=== PATIENT | female | born 1960 | race Caucasian/White ===

== ENCOUNTER 2017-11-23 10:02 | Emergency (ER) | payer OTHER ==
[2017-11-23 10:09] VITALS: BP 151/78
[2017-11-23 11:00] LABS: CHLORIDE,CL 103 mmol/L (101-111); SODIUM,NA 138 mmol/L (135-145)
[2017-11-23 11:05] LABS: ACETAMINOPHEN < 10
--- NOTE | 2017-11-23 17:20 | ER ---
SUBJECTIVE: The patient is a 57-year-old female, she comes in because she feels suicidal, depressed. She purposefully cut herself along the left neck, under the left breast, on the left wrist. She states she works at many jobs, is overwhelmed, very tired. She is afraid the police are going to pick her up, although she has not had anything wrong, and she is afraid to go out. She is very worried about life. She states she used a steak knife. She feels she would like to but does not really want to. She is confused. PAST MEDICAL HISTORY: Previous , hysterectomy, depression, suicidal ideation. Chronic back pain with 2 back surgeries, DDD/DJD. Fibromyalgia. Hypothyroidism, chronic pain, oophorectomy, cholecystectomy, tonsillectomy, and impaired vision. CURRENT MEDICATIONS: Not capable of verifying at this point. Patient unsure. ALLERGIES: She states she is allergic to morphine causes a headache. SOCIAL HISTORY: She denies any substance abuse. REVIEW OF SYSTEMS: Fatigue, lethargy, depression, suicide ideation, frustrated, and she is paranoid, afraid she will be picked up by the police. No chest pain. No shortness of breath. No nausea or vomiting. No bowel or bladder changes. Denies . Denies melena, BRBPR. No head trauma, syncope, near syncope. No vision changes. Please see HPI. OBJECTIVE: Vital Signs: Height is 1.57 m. Weight is 59.9 kg. She is afebrile. Heart rate is 88, blood pressure 151/78, respiratory rate 18, oxygen is 99% on room air. General: Pleasant, she ambulates in the leung to her room and the bathroom. She is interactive. She has a flat affect. In no acute respiratory distress. She is A and O x3. HEENT: Normocephalic, atraumatic. PERRL. EOMI. Neck: Unremarkable. No JVD. Chest: Nontender. It is clear. Abdomen: Soft, benign. Back: No CVAT. Skin: She has a very superficial 1 cm laceration that does not need any repair on the left neck, another very small superficial laceration, less than 1 cm just under the left breast, and she has a very superficial mild abrasion on the left wrist. No deformity. No bleeding. No repair is needed. LAB/STUDIES: White count is 9.5, she has no anemia. Differential, neutrophils are 81.7. Electrolytes are not remarkable. BUN and creatinine are not remarkable. BMP is unremarkable. TSH is normal at 1.68. Salicylates less than 4. Acetaminophen less than 10. Alcohol less than 5. Drug screen is negative except for tricyclic antidepressants and benzos are both positive. Once the patient medically cleared and labs back, social work came and evaluated patient. She felt the patient should be admitted and a directed admit to [facility] would be the best. A call was made to [facility] and the psychiatrist there reviewed the patient and accepted the patient for transfer. ASSESSMENT: 1. Suicidality. 2. Depression. 3. Self-inflicted superficial wounds to left neck, left chest wall and left wrist. PLAN: Transfer via ambulance to [facility] to the Psychiatric Unit for further evaluation. Please send all records to that unit. [facility] /[id number]
== END 2017-11-23 15:50 ==
LOC: EDBD → DL.ED 10:02 → MERGE 10:02 → DL.ED 15:50
DX: S11.91XA Laceration without foreign body of unspecified part of neck, initial encounter (principal); S21.112A Laceration without foreign body of left front wall of thorax without penetration into thoracic cavity, initial encounter; S60.812A Abrasion of left wrist, initial encounter; F32.9 Major depressive disorder, single episode, unspecified; Z88.5 Allergy status to narcotic agent; X78.9XXA Intentional self-harm by unspecified sharp object, initial encounter
CPT/HCPCS: 36415; 80053; 80305; 81003; 84443; 85025; 87086; 99285; G0480; 87088; 87186

== ENCOUNTER 2018-03-15 12:58 | Emergency (ER) | payer OTHER ==
--- NOTE | 2018-03-15 13:18 | EDM.PDOC ---
ED HPI GENERAL MEDICAL PROBLEM - General Chief Complaint: General Stated Complaint: DOES NOT FEEL WELL Time Seen by Provider: 03/15/18 13:17 Source of Information: Reports: Patient, Old Records, RN, RN Notes Reviewed History Limitations: Reports: No Limitations - History of Present Illness INITIAL COMMENTS - FREE TEXT/NARRATIVE: Pt presents to ER from home by POV with c/o "not feeling well in general". Pt is very vague in describing her symptoms. Eventually I was able to determine that for several days she has been having fatigue, low grade fevers and chills, occasional nausea, and back pain. She denies cough, vomiting, sore throat, headache, or rash. She reports that she had diarrhea last week but it resolved on it's own. She is worried about her thyroid because her levothyroxine was increased in November of this year and has not been rechecked yet. Onset: Gradual Duration: Day(s): (2) Location: Reports: Back, Generalized Quality: Reports: Ache Severity: Severe Improves with: Reports: None Worsens with: Reports: None Associated Symptoms: Reports: No Other Symptoms - Related Data Allergies Allergy/AdvReac Type Severity Reaction Status Date / Time codeine Allergy UNKNOWN Verified 03/15/18 13:05 morphine Allergy UNKNOWN Verified 03/15/18 13:05 Home Meds: Home Meds Carisoprodol 350 mg PO TID 03/15/18 [History] LORazepam 0.5 mg PO BID PRN 03/15/18 [History] Levothyroxine Sodium [Levoxyl] 50 mg PO DAILY 03/15/18 [History] Lurasidone HCl [Latuda] 20 mg PO DAILY 03/15/18 [History] Pregabalin [Lyrica] 75 mg PO BID PRN 03/15/18 [History] Past Medical History HEENT History: Reports: Impaired Vision Musculoskeletal History: Reports: Back Pain, Chronic, Fibromyalgia Psychiatric History: Reports: Anxiety, Depression, Psych Hospitalization(s), Suicide Attempt, Suicidal Ideation Endocrine/Metabolic History: Reports: Hypothyroidism - Past Surgical History HEENT Surgical History: Reports: Adenoidectomy, Tonsillectomy GI Surgical History: Reports: Cholecystectomy Female Surgical History: Reports: Hysterectomy, Oophorectomy Social & Family History - Family History Family Medical History: Noncontributory - Tobacco Use Smoking Status *Q: Never Smoker - Caffeine Use Caffeine Use: Reports: Soda - Living Situation & Occupation Living situation: Reports: Single, with Family ED ROS GENERAL - Review of Systems Review Of Systems: ROS reveals no pertinent complaints other than HPI. ED EXAM, GENERAL - Physical Exam Exam: See Below Exam Limited By: No Limitations General Appearance: Alert, No Apparent Distress, Anxious Eye Exam: Bilateral Eye: Normal Inspection Ears: Normal External Exam, Normal Canal, Hearing Grossly Normal, Normal TMs Nose: Normal Inspection, Normal Mucosa, No Blood Throat/Mouth: Normal Inspection, Normal Lips, Normal Teeth, Normal Gums, Normal Oropharynx, Normal Voice, No Airway Compromise Head: Atraumatic, Normocephalic Neck: Normal Inspection, Supple, Non-Tender, Full Range of Motion. No: Lymphadenopathy (L), Lymphadenopathy (R) Respiratory/Chest: No Respiratory Distress, Lungs Clear, Normal Breath Sounds, No Accessory Muscle Use, Chest Non-Tender Cardiovascular: Normal Peripheral Pulses, Regular Rate, Rhythm, No Edema, No Gallop, No JVD, No Murmur, No Rub GI/Abdominal: Normal Bowel Sounds, Soft, No Distention, No Abnormal Bruit, Pelvis Stable, Tender (mildly tender to palpation at LUQ and RUQ). No: Guarding , Rigid, Rebound (Female) Exam: Deferred Rectal (Female) Exam: Deferred Back Exam: Full Range of Motion, CVA Tenderness (L) (mild), CVA Tenderness (R) ( mild). No: Vertebral Tenderness Extremities: Normal Inspection, Normal Range of Motion, Non-Tender, Normal Capillary Refill, No Pedal Edema Neurological: Alert, Oriented, CN II-XII Intact, Normal Cognition, Normal Gait, No Motor/Sensory Deficits Psychiatric: Normal Affect, Normal Mood Skin Exam: Warm, Dry, Intact, Normal Color, No Rash Course - Vital Signs Last Recorded V/S: Last Vital Signs Temp 36.8 C 03/15/18 14:44 Pulse 79 03/15/18 14:44 Resp 18 03/15/18 14:44 BP 139/95 H 03/15/18 14:44 Pulse Ox 99 03/15/18 14:44 - Orders/Labs/Meds Orders: Active Orders 24 hr Category Date Time Status CULTURE URINE [RM] Stat Lab 03/15/18 13:23 Received Labs: Laboratory Tests 03/15/18 03/15/18 03/15/18 Range/Units 13:23 13:50 13:50 WBC 9.4 (5.0-10.0) 10^3/uL RBC 4.15 L (4.2-5.4) 10^6/uL Hgb 13.0 (12.0-16.0) g/dL Hct 38.9 (37.0-47.0) % MCV 93.7 (80-100) fL MCH 31.3 (27.0-34.0) pg MCHC 33.4 (33.0-35.0) g/dL Plt Count 397 (150-450) 10^3/uL Neut % (Auto) 80.0 H (42.2-75.2) % Lymph % (Auto) 13.3 L (20.5-50.1) % [place] % (Auto) 5.6 (2-8) % Eos % (Auto) 0.6 L (1.0-3.0) % Baso % (Auto) 0.5 (0.0-1.0) % Sodium 140 (135-145) mmol/L Potassium 4.0 (3.6-5.0) mmol/L Chloride 104 (101-111) mmol/L Carbon Dioxide 28.0 (21.0-31.0) mmol/L Anion Gap 12.0 BUN 13 (7-18) mg/dL Creatinine 0.7 (0.6-1.3) mg/dL Est Cr Clr Drug Dosing 69.28 mL/min Estimated GFR (MDRD) > 60 BUN/Creatinine Ratio 18.57 Glucose 119 H (74-105) mg/dL Calcium 8.9 (8.4-10.2) mg/dl Total Bilirubin 0.5 (0.2-1.0) mg/dL AST 20 (10-42) IU/L ALT 27 (10-60) IU/L Alkaline Phosphatase 63 (42-121) IU/L Total Protein 7.1 (6.7-8.2) g/dl Albumin 4.1 (3.2-5.5) g/dl Globulin 3.0 Albumin/Globulin Ratio 1.37 TSH, Ultra Sensitive (0.45-5.33) uIu/mL Urine Color Yellow (YELLOW) Urine Appearance Slightly cloudy (CLEAR) Urine pH 5.5 (5.0-9.0) Ur Specific [place] >= 1.030 (1.005-1.030) Urine Protein Negative (NEGATIVE) Urine Glucose (UA) Negative (NEGATIVE) Urine Ketones 40 H (NEGATIVE) Urine Occult Blood Trace-intact H (NEGATIVE) Urine Nitrite Negative (NEGATIVE) Urine Bilirubin Negative (NEGATIVE) Urine Urobilinogen 0.2 (0.2-1.0) mg/dL Ur Leukocyte Esterase Moderate H (NEGATIVE) Urine RBC 5-10 H /HPF Urine WBC 75-100 H (0-5/HPF) /HPF Ur Epithelial Cells Moderate H /HPF Amorphous Sediment Few (0/HPF) /HPF Urine Bacteria Few (0-FEW/HPF) /HPF Urine Mucus Occasional /LPF 03/15/18 Range/Units 13:50 WBC (5.0-10.0) 10^3/uL RBC (4.2-5.4) 10^6/uL Hgb (12.0-16.0) g/dL Hct (37.0-47.0) % MCV (80-100) fL MCH (27.0-34.0) pg MCHC (33.0-35.0) g/dL Plt Count (150-450) 10^3/uL Neut % (Auto) (42.2-75.2) % Lymph % (Auto) (20.5-50.1) % [place] % (Auto) (2-8) % Eos % (Auto) (1.0-3.0) % Baso % (Auto) (0.0-1.0) % Sodium (135-145) mmol/L Potassium (3.6-5.0) mmol/L Chloride (101-111) mmol/L Carbon Dioxide (21.0-31.0) mmol/L Anion Gap BUN (7-18) mg/dL Creatinine (0.6-1.3) mg/dL Est Cr Clr Drug Dosing mL/min Estimated GFR (MDRD) BUN/Creatinine Ratio Glucose (74-105) mg/dL Calcium (8.4-10.2) mg/dl Total Bilirubin (0.2-1.0) mg/dL AST (10-42) IU/L ALT (10-60) IU/L Alkaline Phosphatase (42-121) IU/L Total Protein (6.7-8.2) g/dl Albumin (3.2-5.5) g/dl Globulin Albumin/Globulin Ratio TSH, Ultra Sensitive 1.14 (0.45-5.33) uIu/mL Urine Color (YELLOW) Urine Appearance (CLEAR) Urine pH (5.0-9.0) Ur Specific [place] (1.005-1.030) Urine Protein (NEGATIVE) Urine Glucose (UA) (NEGATIVE) Urine Ketones (NEGATIVE) Urine Occult Blood (NEGATIVE) Urine Nitrite (NEGATIVE) Urine Bilirubin (NEGATIVE) Urine Urobilinogen (0.2-1.0) mg/dL Ur Leukocyte Esterase (NEGATIVE) Urine RBC /HPF Urine WBC (0-5/HPF) /HPF Ur Epithelial Cells /HPF Amorphous Sediment (0/HPF) /HPF Urine Bacteria (0-FEW/HPF) /HPF Urine Mucus /LPF Meds: Medications Discontinued Medications Generic Name Dose Route Start Last Admin Trade Name Freq PRN Reason Stop Dose Admin Hydrocodone Bitart/Acetaminophen 1 tab 03/15/18 14:41 Yantis 325-10 Mg PO 03/15/18 14:42 ONETIME ONE Ketorolac Tromethamine 60 mg 03/15/18 14:40 Toradol IM 03/15/18 14:41 ONETIME ONE Trimethoprim/Sulfamethoxazole 1 tab 03/15/18 14:40 Septra Ds PO 03/15/18 14:41 ONETIME ONE Departure - Departure Time of Disposition: 14:48 Disposition: Home, Self-Care 01 Condition: Good Clinical Impression: History of hypothyroidism UTI (urinary tract infection) Qualifiers: Urinary tract infection type: site unspecified Hematuria presence: with hematuria Qualified Code(s): N39.0 - Urinary tract infection, site not specified Chronic pain Qualifiers: Chronic pain type: chronic pain syndrome Qualified Code(s): G89.4 - Chronic pain syndrome - Discharge Information *PRESCRIPTION DRUG MONITORING PROGRAM REVIEWED*: No *COPY OF PRESCRIPTION DRUG MONITORING REPORT IN PATIENT FELIZ: No Instructions: Hypothyroidism, Urinary Tract Infection, Adult, [id number], Chronic Pain, Adult Forms: ED Department Discharge Additional Instructions: Rx: Bactrim DS Rx: Toradol 10mg *Take with food. Follow up in clinic for recheck in 5 to 7 days. - My Orders Last 24 Hours: My Active Orders 03/15/18 13:23 CULTURE URINE [RM] Stat - Assessment/Plan Last 24 Hours: My Active Orders 03/15/18 13:23 CULTURE URINE [RM] Stat
[2018-03-15 14:26] LABS: CHLORIDE,CL 104 mmol/L (101-111); SODIUM,NA 140 mmol/L (135-145)
[2018-03-15] MEDS ORDERED: Sulfamethoxazole/Trimethoprim 800-160 MG Tab PO ONE (14:40)
[2018-03-15] MEDS ORDERED: Ketorolac 30 MG/ML SDV IM ONE (14:40)
[2018-03-15] MEDS ORDERED: Acetaminophen/HYDROcodone 325-10 MG Tab PO ONE (14:41)
[2018-03-15 14:45] VITALS: BP 139/95
== END 2018-03-15 15:52 | disposition home or self-care (01) ==
LOC: DL.ED 12:58
DX: N39.0 Urinary tract infection, site not specified (principal); E03.9 Hypothyroidism, unspecified; G89.4 Chronic pain syndrome; F32.9 Major depressive disorder, single episode, unspecified; F41.9 Anxiety disorder, unspecified; Z79.899 Other long term (current) drug therapy; Z88.5 Allergy status to narcotic agent
CPT/HCPCS: 36415; 80053; 81001; 84443; 85025; 87086; 96372; 99283; A9270; J1885

== ENCOUNTER 2018-06-24 14:21 | Emergency (ER) | payer OTHER ==
[2018-06-24 14:34] VITALS: BP 161/75
[2018-06-24] MEDS ORDERED: GI Cocktail Oral Solution 30 ML PO ONE (14:56)
--- NOTE | 2018-06-24 15:02 | EDM.PDOC ---
ED HPI GENERAL MEDICAL PROBLEM - General Chief Complaint: Chest Pain Stated Complaint: CHEST PAIN/HIGH ANXIETY Time Seen by Provider: 06/24/18 14:57 Source of Information: Reports: Patient History Limitations: Reports: No Limitations - History of Present Illness INITIAL COMMENTS - FREE TEXT/NARRATIVE: Patient comes emergency department today with complaints of chest pain. Proximally 2 hours ago she was at work when she suddenly developed pressure sensation over the left anterior chest. He has had some nausea but no vomiting. No diaphoresis. She has been dealing with quite a bit of emotional stress over the past couple months which she does not elaborate in much. She does take quite a bit of psychiatric medication but she has not taken anything since Sunday. She has used lorazepam for this type of symptomology in the past with improvement of pain although she has not tried it with his development. She is unsure if she has shortness of breath or diaphoresis. Chest Pain Score (Numeric/FACES): 6 - Related Data Allergies Allergy/AdvReac Type Severity Reaction Status Date / Time codeine Allergy UNKNOWN Verified 06/24/18 14:38 morphine Allergy UNKNOWN Verified 06/24/18 14:38 Home Meds: Home Meds Carisoprodol 350 mg PO TID 03/15/18 [History] Diclofenac Sodium [Voltaren] 50 mg PO ASDIRECTED PRN 03/15/18 [History] LORazepam 0.5 mg PO BID PRN 03/15/18 [History] Levothyroxine Sodium [Levoxyl] 50 mg PO DAILY 03/15/18 [History] Lurasidone HCl [Latuda] 20 mg PO DAILY 03/15/18 [History] Pregabalin [Lyrica] 75 mg PO BID PRN 03/15/18 [History] Past Medical History HEENT History: Reports: Impaired Vision Musculoskeletal History: Reports: Back Pain, Chronic, Fibromyalgia Psychiatric History: Reports: Anxiety, Depression, Psych Hospitalization(s), Suicide Attempt, Suicidal Ideation Endocrine/Metabolic History: Reports: Hypothyroidism - Past Surgical History HEENT Surgical History: Reports: Adenoidectomy, Tonsillectomy GI Surgical History: Reports: Cholecystectomy Female Surgical History: Reports: Hysterectomy, Oophorectomy Social & Family History - Family History Family Medical History: Noncontributory - Tobacco Use Smoking Status *Q: Never Smoker - Caffeine Use Caffeine Use: Reports: Coffee - Recreational Drug Use Recreational Drug Use: No - Living Situation & Occupation Living situation: Reports: Single, with Family ED ROS GENERAL - Review of Systems Review Of Systems: ROS reveals no pertinent complaints other than HPI. ED EXAM, GENERAL - Physical Exam Exam: See Below Exam Limited By: No Limitations General Appearance: Alert, WD/WN, No Apparent Distress Nose: Normal Inspection Throat/Mouth: Normal Inspection Head: Atraumatic, Normocephalic Neck: Normal Inspection, Supple, Non-Tender Respiratory/Chest: No Respiratory Distress, Lungs Clear, Normal Breath Sounds, No Accessory Muscle Use Cardiovascular: Normal Peripheral Pulses, Regular Rate, Rhythm GI/Abdominal: Normal Bowel Sounds, Soft, No Abnormal Bruit Rectal (Female) Exam: Normal Exam Back Exam: Normal Inspection, Full Range of Motion Extremities: Normal Inspection, Normal Range of Motion, Normal Capillary Refill Neurological: Alert, Oriented, CN II-XII Intact, No Motor/Sensory Deficits Psychiatric: Flat Affect, Tearful, Other (She is rather quiet and gives very little information. She has little to no eye contact. She is intermittently tearful. Most of the answers to questions are "I don't know". It appears as if to me that she wants to share some information but she does not give any information.) Skin Exam: Warm, Dry, Intact, Normal Color EKG INTERPRETATION EKG Date: 06/24/18 Time: 14:26 Rhythm: NSR Rate (Beats/Min): 78 Jarrell: Normal P-Wave: Present QRS: Normal ST-T: Normal QT: Normal Course - Vital Signs Last Recorded V/S: Last Vital Signs Temp 37.4 C 06/24/18 14:29 Pulse 74 06/24/18 14:29 Resp 18 06/24/18 14:29 BP 161/75 H 06/24/18 14:29 Pulse Ox 98 06/24/18 14:29 - Orders/Labs/Meds Orders: Active Orders 24 hr Category Date Time Status EKG 12 Lead [EKG Documentation Completion] [RC] URGENT Care 06/24/18 14:56 Active Labs: Laboratory Tests 06/24/18 06/24/18 06/24/18 Range/Units 15:02 15:02 16:39 WBC 9.4 (5.0-10.0) 10^3/uL RBC 3.84 L (4.2-5.4) 10^6/uL Hgb 12.5 (12.0-16.0) g/dL Hct 36.2 L (37.0-47.0) % MCV 94.3 (80-100) fL MCH 32.6 (27.0-34.0) pg MCHC 34.5 (33.0-35.0) g/dL Plt Count 361 (150-450) 10^3/uL Neut % (Auto) 73.2 (42.2-75.2) % Lymph % (Auto) 17.2 L (20.5-50.1) % [place] % (Auto) 7.9 (2-8) % Eos % (Auto) 1.3 (1.0-3.0) % Baso % (Auto) 0.4 (0.0-1.0) % Sodium 138 (135-145) mmol/L Potassium 3.4 L (3.6-5.0) mmol/L Chloride 103 (101-111) mmol/L Carbon Dioxide 26.0 (21.0-31.0) mmol/L Anion Gap 12.4 BUN 19 H (7-18) mg/dL Creatinine 0.8 (0.6-1.3) mg/dL Est Cr Clr Drug Dosing 60.62 mL/min Estimated GFR (MDRD) > 60 BUN/Creatinine Ratio 23.75 Glucose 107 H (74-105) mg/dL Calcium 9.1 (8.4-10.2) mg/dl Total Bilirubin 0.5 (0.2-1.0) mg/dL AST 22 (10-42) IU/L ALT 19 (10-60) IU/L Alkaline Phosphatase 58 (42-121) IU/L Troponin I < 0.02 (0.00-0.02) ng/ml Total Protein 6.7 (6.7-8.2) g/dl Albumin 4.2 (3.2-5.5) g/dl Globulin 2.5 Albumin/Globulin Ratio 1.68 Urine Opiates Screen Negative (NEGATIVE) Ur Oxycodone Screen Negative (NEGATIVE) Urine Methadone Screen Negative (NEGATIVE) Ur Barbiturates Screen Negative (NEGATIVE) U Tricyclic Antidepress Negative (NEGATIVE) Ur Phencyclidine Scrn Negative (NEGATIVE) Ur Amphetamine Screen Negative (NEGATIVE) U Methamphetamines Scrn Negative (NEGATIVE) Urine MDMA Screen Negative (NEGATIVE) U Benzodiazepines Scrn Negative (NEGATIVE) Urine Cocaine Screen Negative (NEGATIVE) U Marijuana (THC) Screen Negative (NEGATIVE) Meds: Medications Discontinued Medications Generic Name Dose Route Start Last Admin Trade Name [place] PRN Reason Stop Dose Admin Al Hydroxide/Mg Hydroxide 30 ml 06/24/18 14:56 06/24/18 15:09 Gi Cocktail PO 06/24/18 14:57 30 ml ONETIME ONE Administration - Re-Assessments/Exams Free Text/Narrative Re-Assessment/Exam: 06/24/18 15:11 GI cocktail no change in symptomatology. Labs drawn 06/24/18 16:41 EKG laboratory evaluation and chest x-ray are unremarkable. Really do not some concerns about what the underlying gain of this patient is that she gives very little information and is somewhat not sharing information with us. Eventually she does explain that she does not want to use her Ativan as much as she has concerns that they're controlled substances. Her anxiety and depression is under control and she feels that she needs an increase of her Ativan but her prescriber will not do this for her. She does take Latuda lorazepam Soma and Lyrica. I'm really not sure what the patient is in the emergency department for what she expects of the visit today. When I ask her very blatantly how we can help her she answers me I don't know. She does request a urine drug screen. She is quite concerned of the controlled substances that she takes that she may get in trouble at work for which he is taking. She denies taking her medication inappropriately or in any way of recreational benefit. 06/24/18 19:44 urine drug screen is negative SHe would like a refill on her ativan although she has some ativan at home that she has not tried. As the patients cardiac work up is negative and she gives little to no information about my other concerns I do not feel comfortable prescribing her another controlled substances with the large amount she is already on and she has some at home. SHe needs to see her primary care for refills of her chronic medication and especially the controlled substances. Departure - Departure Time of Disposition: 17:20 Disposition: Home, Self-Care 01 Clinical Impression: Anxiety, Chest pain, non-cardiac Instructions: Generalized Anxiety Disorder, Adult, Nonspecific Chest Pain, Easy -to-Read Referrals: Gabby Mane MD [Primary Care Provider] - Forms: ED Department Discharge Additional Instructions: Use your ativan as needed for your anxiety. Follow up with PCP this week about chronic anxiety and chronic pain issues. Consider see a counseling again in the next week as well. Works well with all your symptoms and your fibromyalgia. Return to the ED if new or worsening symptoms. - My Orders Last 24 Hours: My Active Orders 06/24/18 14:56 EKG 12 Lead [EKG Documentation Completion] [RC] URGENT - Assessment/Plan Last 24 Hours: My Active Orders 06/24/18 14:56 EKG 12 Lead [EKG Documentation Completion] [RC] URGENT Assessment:: Chest pain none cardiac anxiety Plan: Use your ativan as needed for your anxiety. Follow up with PCP this week about chronic anxiety and chronic pain issues. Consider see a counseling again in the next week as well. Works well with all your symptoms and your fibromyalgia. Return to the ED if new or worsening symptoms.
[2018-06-24 15:27] LABS: ANION GAP 12.4; CHLORIDE,CL 103 mmol/L (101-111); SODIUM,NA 138 mmol/L (135-145)
--- NOTE | 2018-06-24 15:47 | CR ---
Clinical history: 57-year-old female complaining of chest pain. Interpretation: Mild scoliosis. 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 Normal cardiac silhouette without alveolar edema or dependent pleural effusion. No lung mass, hilar lymphadenopathy or focal lobar pneumonia. No atelectasis/collapse. No pneumothorax or free subdiaphragmatic air. CONCLUSION: No cardiopulmonary abnormality.
== END 2018-06-24 17:35 | disposition home or self-care (01) ==
LOC: DL.ED 14:21
DX: R07.89 Other chest pain (principal); F41.9 Anxiety disorder, unspecified; Z88.5 Allergy status to narcotic agent
CPT/HCPCS: 36415; 71046; 80053; 80305; 84484; 85025; 93005; 99285; A9270

== ENCOUNTER 2019-08-28 06:30 | Day surgery (SDC) | payer OTHER ==
[2019-08-28] MEDS ORDERED: Midazolam 1 MG/ML 2 ML SDV IV ONE ×3 (06:31→07:32)
[2019-08-28] MEDS ORDERED: fentaNYL 100 MCG/2 ML SDV IV ONE ×3 (06:31→07:30)
[2019-08-28] MEDS ORDERED: fentaNYL 100 MCG/2 ML SDV ONE (06:35)
[2019-08-28] MEDS ORDERED: Midazolam 1 MG/ML 2 ML SDV ONE (06:35)
[2019-08-28] MEDS ORDERED: Dextrose 5%-0.45% NaCl 1,000 ML IV SCH (07:30)
[2019-08-28 12:03] VITALS: BP 124/66; PULSE 52
--- NOTE | 2019-08-28 14:04 | OR ---
DATE: 08/28/2019 PROCEDURES: Esophagogastroduodenoscopy and multiple pinch biopsies. INSTRUMENT USED: [id number] Olympus video panendoscope. PREMEDICATIONS: No oral or topical anesthesia used. Fentanyl 100 mcg intravenous, Versed 2 mg intravenous, nasal O2 cannula. The procedure was done under pulse oximetry, BP recording, and radiographer cardiac catheterization. INDICATION: The patient with longstanding persistent upper abdominal pain, dyspepsia, heartburn as well as diarrhea unexplained and not responsive to medical measures. Esophagogastroduodenoscopy is performed for detection of any active erosive lesions, Freed esophagus and/or malignancy also under consideration, H pylori status to be determined. Small bowel biopsies to be obtained for celiac disease if indicated, endoscopic hemostasis therapy if needed. PROCEDURE IN DETAIL: The scope was passed with ease. Adequate visualization of the esophagus was made from proximal to distal areas. No upper esophageal lesions identified. No distal esophageal stricture. No uphill or downhill esophageal varices. No Eli-Salazar tear. No evidence of erosive esophagitis by [facility] criteria. No esophageal polyp or tumor mass identified. Z-line was seen around 39 cm distal to the oral verge, configuration consistent with grade 1 by ZAP classification. No esophageal polyp or tumor mass identified. No proximal gastric varices noted. Gastric fundus examination by retroflexion showed no polypoid lesions. No gastric ulcer, malignant mass, or vascular ectasia identified. Scattered gastric antral erosions were noted without bleeding from them. Duodenal bulb showed no ulcer. Visualized second part of the duodenum was unremarkable. Multiple pinch biopsies, 4 in number, were taken from different areas of the second part of the duodenum and tissues were also obtained from the duodenal bulb at 9 and 12 o'clock positions and sent for any histopathologic evidence of celiac disease. Multiple pinch biopsies were also taken from the gastric antrum and proximal body and sent for PyloriTek test for H pylori and histopathology. No bleeding was noted from any of the visualized areas at the completion of examination. Photographs were taken of the duodenal bulb, gastric antrum, fundus, and distal esophagus. IMPRESSION: Gastric antral erosions. The patient tolerated the procedure well. [facility] /[id number]
== END 2019-08-28 09:45 | disposition home or self-care (01) ==
LOC: DL.ENDO 06:30
PROVIDERS: ATTEND Internal Medicine Gastroenterology
DX: K25.9 Gastric ulcer, unspecified as acute or chronic, without hemorrhage or perforation (principal); R19.7 Diarrhea, unspecified; F41.1 Generalized anxiety disorder; E03.9 Hypothyroidism, unspecified; Z88.5 Allergy status to narcotic agent; Z87.11 Personal history of peptic ulcer disease; Z79.899 Other long term (current) drug therapy; Z90.49 Acquired absence of other specified parts of digestive tract
CPT/HCPCS: 43239; 87077; J2250; J3010; J7042

== ENCOUNTER 2019-09-11 06:32 | Day surgery (SDC) | payer OTHER ==
[~2019-09-11 06:32] MED LIST: Dextrose 5%-0.45% NaCl 1,000 ML IV SCH; Sodium Chloride 0.9% 10 ML Syringe FLUSH PRN
[2019-09-11] MEDS ORDERED: fentaNYL 100 MCG/2 ML SDV IV ONE ×3 (06:33→07:27)
[2019-09-11] MEDS ORDERED: Midazolam 1 MG/ML 2 ML SDV IV ONE ×7 (06:33→07:37)
[2019-09-11] MEDS ORDERED: Midazolam 1 MG/ML 2 ML SDV ONE (07:07)
[2019-09-11] MEDS ORDERED: fentaNYL 100 MCG/2 ML SDV ONE (07:08)
[2019-09-11] MEDS ORDERED: Dextrose 5%-0.45% NaCl 1,000 ML IV SCH (07:15)
--- NOTE | 2019-09-11 08:51 | OR ---
DATE: 09/11/2019 PROCEDURES: Total colonoscopy, terminal ileoscopy, narrow-band imaging, and multiple pinch biopsies. INSTRUMENT USED: PCF-H190DL Olympus video colonoscope. PREMEDICATIONS: Fentanyl 100 mcg intravenous, Versed 4 mg intravenous, nasal O2 cannula. The procedure was done under pulse oximetry, BP recording, and monitoring tech. INDICATION: The patient with chronic intermittent diarrhea, unexplained and not responsive to medical measures. Colonoscopic examination is done for detection of any polypoid lesions and removal, biopsies to be obtained for microscopic colitis, endoscopic hemostasis therapy if needed. DESCRIPTION OF PROCEDURE: Initial rectal exam was unremarkable. Rigid anoscopy was normal. The colonoscope was passed with ease. Few scattered diverticula were noted in the distal left colon. The scope was passed with ease up to and beyond the ileocecal junction to visualize normal-appearing terminal ileum, NBI views were obtained, photographs were taken, multiple pinch biopsies were obtained from the terminal ileum and sent for histopathology. Photographs were also taken of the normal-appearing cecum. No bleeding was noted from any of the visualized areas at the commencement of the examination. The bowel preparation was found to be adequate, [place] scale 3 in all the regions, total score 9. No stricture. No vascular ectasia. No large isolated ulcerations seen. No evidence of diffuse inflammatory bowel disease in the form of friability, contact bleeding, or ulcerations. No polyp or tumor mass identified. Probing the proximal sides of folds and flexures using adequate distention and clearing up the stool material, withdrawal of the scope was made. Multiple pinch biopsies were taken from the normal-appearing mucosa of the mid transverse colon, mid descending colon, and rectosigmoid, and sent for any histopathologic evidence of microscopic colitis. No bleeding was noted from any of the visualized areas at the completion of examination. IMPRESSION: Diverticulosis. The patient tolerated the procedure well. [facility] /[id number]
[2019-09-11 09:49] VITALS: BP 129/71; PULSE 45
== END 2019-09-11 09:55 | disposition home or self-care (01) ==
LOC: DL.ENDO 06:32
PROVIDERS: ATTEND Internal Medicine Gastroenterology
DX: K52.9 Noninfective gastroenteritis and colitis, unspecified (principal); K57.30 Diverticulosis of large intestine without perforation or abscess without bleeding; E03.9 Hypothyroidism, unspecified; F41.1 Generalized anxiety disorder; J30.9 Allergic rhinitis, unspecified; K25.9 Gastric ulcer, unspecified as acute or chronic, without hemorrhage or perforation; Z79.899 Other long term (current) drug therapy
CPT/HCPCS: 45380; J2250; J3010; J7042

== ENCOUNTER 2020-02-21 15:55 | Emergency (ER) | payer OTHER ==
[2020-02-21 16:07] VITALS: BP 148/78; PULSE 74
[2020-02-21] MEDS ORDERED: Dexamethasone 4 MG/ML SDV IM ONE (16:13)
--- NOTE | 2020-02-21 16:37 | EDM.PDOC ---
Scribed by Flori Goff 02/21/20 [id number] for Viral Zheng MD ED HPI GENERAL MEDICAL PROBLEM - General Chief Complaint: Back Pain or Injury Stated Complaint: BACK PAIN, LEFT LEG IN PAIN Time Seen by Provider: 02/21/20 16:07 Source of Information: Reports: Patient, Old Records, RN, RN Notes Reviewed History Limitations: Reports: No Limitations - History of Present Illness INITIAL COMMENTS - FREE TEXT/NARRATIVE: Patient presents to the ED by POV stating that she has severe low back pain radiating to the left knee for about 1 week. Admits to chronic lower back pain, but usually manages without medication. Denies any new injury, fall, lifting, or specific trigger causing the current pain. She was seen in clinic yesterday and placed on a new medication (Ketoralac) for back pain. Patient states she has taken 3 doses and it is not working yet. Pt is tearful and very emotional. She states that she is having an MRI on Sunday, 02/24, and then is going for back surgery. Interestingly, she has not actually been seen by the neurosurgeon regarding her symptoms yet, but she is absolutely confident that she is going to have surgery. She denies loss of bowel or bladder control, saddle area numbness, or motor weakness of the lower extremities. 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 Lower Back Pain Score (Numeric/FACES): 10 - Related Data Allergies Allergy/AdvReac Type Severity Reaction Status Date / Time codeine Allergy Headache Verified 02/21/20 16:04 morphine Allergy Headache Verified 02/21/20 16:04 Home Meds: Home Meds Diclofenac Sodium [Voltaren] 1 squirt TOP ASDIRECTED PRN 03/15/18 [History] LORazepam 0.5 mg PO BID PRN 03/15/18 [History] Levothyroxine Sodium [Levoxyl] 50 mcg PO DAILY 03/15/18 [History] Pregabalin [Lyrica] 75 mg PO BID PRN 03/15/18 [History] carisoprodoL [Carisoprodol] 350 mg PO TID PRN 03/15/18 [History] Acetaminophen 650 mg PO TID 08/27/19 [History] ziprasidone HCL [Geodon] 40 mg PO BEDTIME 08/27/19 [History] Cholecalciferol (Vitamin D3) [Vitamin D] 1,000 units PO DAILY 08/28/19 [History] Cyanocobalamin (Vitamin B-12) [Cyanocobalamin Injection] 1,000 mcg IM 09/10/19 [History] Omeprazole 20 mg PO DAILY 09/10/19 [History] Ketorolac [Toradol] 10 mg PO Q6H PRN 02/21/20 [History] busPIRone [Buspar] 10 mg PO BID 02/21/20 [History] Past Medical History HEENT History: Reports: Allergic Rhinitis Cardiovascular History: Reports: None Other Cardiovascular History: Has palpatations. 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: Musculoskeletal History: Reports: Back Pain, Chronic, Fibromyalgia Other Musculoskeletal History: Degeneratvie disc, herniated disc L3/4 Neurological History: Reports: Migraines Psychiatric History: Reports: Anxiety, Depression, Emotional Problems, Psych Hospitalization(s), Psychosis, Suicide Attempt, Suicidal Ideation Other Psychiatric History: Geodon being taken Endocrine/Metabolic History: Reports: Hypothyroidism Hematologic History: Reports: None Immunologic History: Reports: None Oncologic (Cancer) History: Reports: None Dermatologic History: Reports: None - Infectious Disease History Infectious Disease History: Reports: Chicken Pox, Mumps - Past Surgical History HEENT Surgical History: Reports: Adenoidectomy, Tonsillectomy Cardiovascular Surgical History: Reports: None Respiratory Surgical History: Reports: None GI Surgical History: Reports: Cholecystectomy, EGD Female Surgical History: Reports: Hysterectomy, Oophorectomy Neurological Surgical History: Reports: Lumbar Spine Musculoskeletal Surgical History: Reports: Other (See Below) Other Musculoskeletal Surgeries/Procedures:: back surg Social & Family History - Family History Family Medical History: Noncontributory Other Cardiac Family History: Both parents of cardiac arrest - Caffeine Use Caffeine Use: Reports: Coffee, Tea Other Caffeine Use: 3 coffee daily Caffeine Use Comment: 2 cups per day - Living Situation & Occupation Living situation: Reports: Single, with Family Occupation: Employed ED ROS GENERAL - Review of Systems Review Of Systems: Comprehensive ROS is negative, except as noted in HPI. ED EXAM,LOWER BACK PAIN/INJURY - Physical Exam Exam: See Below Exam Limited By: No Limitations General Appearance: Alert, WD/WN, Anxious, Other (Tearful) Throat/Mouth: Normal Voice Head: Atraumatic, Normocephalic Neck: Normal Inspection, Full Range of Motion Respiratory/Chest: No Respiratory Distress Cardiovascular: Normal Peripheral Pulses GI/Abdominal: Normal Bowel Sounds, Soft, Non-Tender, No Organomegaly, No Distention, No Abnormal Bruit, No Mass, Pelvis Stable. No: Guarding, Rigid, Rebound (Female) Exam: Deferred Rectal (Female) Exam: Deferred Back Exam: Muscle Spasm (Lumbar regional), Paraspinal Tenderness (Lumbar), Vertebral Tenderness (Generalized lower lumbar). No: CVA Tenderness (L), CVA Tenderness (R) Extremities: Normal Inspection, Normal Range of Motion, Non-Tender, No Pedal Edema, Normal Capillary Refill. No: Joint Swelling, Leg Pain, Redness Neurological: Alert, Normal Dorsiflexion, Normal Plantar Flexion, No Motor/Sensory Deficits, Oriented x 3, Other (Antalgic gait slightly favoring left leg.) Psychiatric: Anxious, Depressed Mood, Flat Affect, Tearful Skin Exam: Warm, Dry, Intact, Normal Color, No Rash Course - Vital Signs Last Recorded V/S: Last Vital Signs Temp 99.6 F 02/21/20 16:04 Pulse 74 02/21/20 16:04 Resp 18 02/21/20 16:04 BP 148/78 H 02/21/20 16:04 Pulse Ox 99 02/21/20 16:04 - Orders/Labs/Meds Meds: Medications Discontinued Medications Generic Name Dose Route Start Last Admin Trade Name Freq PRN Reason Stop Dose Admin Dexamethasone 8 mg 02/21/20 16:13 Dexamethasone IM 02/21/20 16:14 ONETIME ONE Orphenadrine Citrate 60 mg 02/21/20 16:14 Norflex IM 02/21/20 16:15 ONETIME ONE - Re-Assessments/Exams Free Text/Narrative Re-Assessment/Exam: 02/21/20 16:32 Pt is very emotionally upset and tearful, but has fairly benign exam with no c oncerns for cauda equina syndrome or acute spinal cord compromise. I see no indication for further diagnostic work up in the emergent setting, and her scheduled MRI is reasonable to keep as scheduled on 02/25/20. Departure - Departure Time of Disposition: 16:35 Disposition: Home, Self-Care 01 Condition: Good Clinical Impression: Acute left lumbar radiculopathy - Discharge Information *PRESCRIPTION DRUG MONITORING PROGRAM REVIEWED*: Not Applicable *COPY OF PRESCRIPTION DRUG MONITORING REPORT IN PATIENT FELIZ: Not Applicable Instructions: Lumbosacral Radiculopathy, Acute Back Pain, Adult Forms: ED Department Discharge Additional Instructions: Rx: Dexamethasone 4mg Rx: Orphenadrine 100mg Follow up for MRI and see your doctor as planned. Sepsis Event Note (ED) - Evaluation Sepsis Screening Result: No Definite Risk - Focused Exam Vital Signs: Vital Signs Temp Pulse Resp BP Pulse Ox 02/21/20 16:04 99.6 F 74 18 148/78 H 99 I have read and agree with the documentation that has been completed regarding this visit. By signing this record, I attest that the documentation was completed in my physical presence and is an accurate record of the encounter.
== END 2020-02-21 16:41 | disposition home or self-care (01) ==
LOC: DL.ED 15:55
DX: M54.16 Radiculopathy, lumbar region (principal); F41.9 Anxiety disorder, unspecified; F32.9 Major depressive disorder, single episode, unspecified; E03.9 Hypothyroidism, unspecified; Z88.5 Allergy status to narcotic agent; Z79.899 Other long term (current) drug therapy
CPT/HCPCS: 96372; 99283; J1100; J2360

== ENCOUNTER 2020-02-28 16:11 | Emergency (ER) | payer OTHER | END 2020-02-28 16:45 | disposition left against medical advice (07) | LOC: DL.ED 16:11 | DX: Z53.21 Procedure and treatment not carried out due to patient leaving prior to being seen by health care provider (principal) ==

== ENCOUNTER 2022-11-03 18:43 | Emergency (ER) | payer OTHER ==
[2022-11-03 19:40] VITALS: BP 128/79; PULSE 58
[2022-11-03] MEDS ORDERED: Sodium Chloride 0.9% 10 ML Syringe FLUSH PRN (19:53)
[2022-11-03] MEDS ORDERED: Sodium Chloride 0.9% 1,000 ML IV SCH (20:00)
[2022-11-03 20:16] LABS: BASOPHILS PERCENT AUTO 0.3 % (0.0-1.0); EOSINOPHILS PERCENT AUTO 1.7 % (1.0-3.0); HEMATOCRIT 36.1 % (37.0-47.0); HEMOGLOBIN 12.2 g/dL (12.0-16.0); LYMPHOCYTES PERCENT AUTO 35.3 % (20.5-50.1); MEAN CORPUSCULAR HGB CONC 33.8 g/dL (33.0-35.0); MEAN CORPUSCULAR VOLUME 97.6 fL (80-100); MONOCYTES PERCENT AUTO 7.8 % (2-8); NEUTROPHILS PERCENT AUTO 54.9 % (42.2-75.2); PLATELET COUNT,PLT 278 10^3/uL (150-450)
[2022-11-03 20:35] LABS: A/G RATIO 1.6; ALBUMIN 3.9 g/dL (3.4-5.0); ANION GAP 7.4 mEq/L (7-13); BILIRUBIN TOTAL 0.3 mg/dL (0.2-1.0); CALCIUM 8.6 mg/dL (8.5-10.1); CREATININE 0.94 mg/dL (0.55-1.02); EST CRCL DRUG DOSING (CG) 47.34 mL/min; POTASSIUM,K 4.4 mmol/L (3.5-5.1); PROTEIN TOTAL,TP 6.3 g/dL (6.4-8.2)
[2022-11-03 21:11] LABS: APPEARANCE,URINE CLEAR (CLEAR); BILIRUBIN,URINE NEGATIVE (NEGATIVE); COLOR,URINE YELLOW (YELLOW); GLUCOSE,URINE NEGATIVE (NEGATIVE); KETONES,URINE NEGATIVE (NEGATIVE); LEUKOCYTE ESTERASE,URINE TRACE (NEGATIVE); NITRITE,URINE NEGATIVE (NEGATIVE); OCCULT BLOOD,URINE NEGATIVE (NEGATIVE); PROTEIN,URINE NEGATIVE (NEGATIVE); UROBILINOGEN,URINE 0.2 mg/dL (0.2-1.0)
[2022-11-03 21:18] LABS: AMORPHOUS SEDIMENT,URINE FEW /HPF (NOT SEEN); BACTERIA,URINE FEW /HPF (0-FEW/HPF); EPITHELIAL CELLS,URINE RARE /HPF (NOT SEEN); MUCUS,URINE FEW /LPF (NOT SEEN); RBC,URINE 0-5 /HPF (0-5); WBC,URINE 0-5 /HPF (0-5/HPF)
== END 2022-11-03 23:07 | disposition home or self-care (01) ==
LOC: DL.ED 18:43
DX: K52.9 Noninfective gastroenteritis and colitis, unspecified (principal); E03.9 Hypothyroidism, unspecified; Z88.5 Allergy status to narcotic agent; Z79.899 Other long term (current) drug therapy
CPT/HCPCS: 36415; 74176; 80053; 81001; 83690; 85025; 96360; 99284; J7030; J3490

== ENCOUNTER 2022-11-14 05:00 | Emergency (ER) | payer OTHER ==
[2022-11-14] MEDS ORDERED: Sodium Chloride 0.9% 1,000 ML IV ONE (05:50)
[2022-11-14] MEDS ORDERED: Metoclopramide 10 MG/2 ML SDV IVPUSH ONE (05:50)
[2022-11-14 06:12] LABS: BASOPHILS PERCENT AUTO 0.5 % (0.0-1.0); EOSINOPHILS PERCENT AUTO 2.5 % (1.0-3.0); HEMATOCRIT 37.5 % (37.0-47.0); HEMOGLOBIN 12.7 g/dL (12.0-16.0); LYMPHOCYTES PERCENT AUTO 23.5 % (20.5-50.1); MEAN CORPUSCULAR HEMOGLOBIN 32.6 pg (27.0-34.0); MEAN CORPUSCULAR HGB CONC 33.9 g/dL (33.0-35.0); MEAN CORPUSCULAR VOLUME 96.4 fL (80-100); MONOCYTES PERCENT AUTO 8.1 % (2-8); NEUTROPHILS PERCENT AUTO 65.4 % (42.2-75.2); PLATELET COUNT,PLT 308 10^3/uL (150-450); RED BLOOD CELL COUNT 3.89 10^6/uL (4.2-5.4)
[2022-11-14 06:34] LABS: LACTIC ACID 0.6 mmol/L (0.4-2.0)
[2022-11-14 06:37] LABS: AMYLASE 35 U/L (25-115); BLOOD UREA NITROGEN,BUN 13 mg/dL (7-18); CALCIUM 8.8 mg/dL (8.5-10.1); CARBON DIOXIDE,CO2 27 mmol/L (21-32); CHLORIDE,CL 106 mmol/L (98-107); CREATININE 0.82 mg/dL (0.55-1.02); EST CRCL DRUG DOSING (CG) 52.99 mL/min; GLUCOSE RANDOM 104 mg/dL (70-99); LIPASE 101 U/L (73-393); SODIUM,NA 141 mmol/L (136-145)
[2022-11-14 06:41] LABS: C-REACTIVE PROTEIN < 0.2 mg/dL (0.0-0.9); ESTIMATED GFR 80 mL/min (>=60)
[2022-11-14] MEDS ORDERED: Lactulose Soln 10 GM/15 ML 30 ML UD Cup PO ONE (07:16)
[2022-11-14] MEDS ORDERED: Bisacodyl 10 MG Supp RECTAL ONE (07:16)
== END 2022-11-14 07:54 | disposition home or self-care (01) ==
LOC: DL.ED 05:00
DX: K59.01 Slow transit constipation (principal); E03.9 Hypothyroidism, unspecified; Z88.5 Allergy status to narcotic agent; Z79.899 Other long term (current) drug therapy
CPT/HCPCS: 36415; 74019; 80048; 82150; 83605; 83690; 85025; 86140; 96374; 99284; A9270; J2765; J7030

== ENCOUNTER 2024-03-11 10:20 | Emergency (ER) | payer OTHER ==
[2024-03-11 10:51] VITALS: BP 109/80; PULSE 79
[2024-03-11] MEDS: Metoclopramide 10 MG Tab PO ONE (11:19)
[2024-03-11] MEDS: Sennosides/Docusate Sodium 50-8.6 MG Tab PO ONE (11:19)
[2024-03-11] MEDS: Magnesium Citrate Solution 296 ML Bottle PO ONE (11:24)
== END 2024-03-11 13:06 ==
LOC: DL.ED 10:20
DX: K59.00 Constipation, unspecified (principal); E03.9 Hypothyroidism, unspecified; Z90.49 Acquired absence of other specified parts of digestive tract; Z90.710 Acquired absence of both cervix and uterus; Z79.1 Long term (current) use of non-steroidal anti-inflammatories (NSAID); Z79.899 Other long term (current) drug therapy; Z79.890 Hormone replacement therapy; Z88.5 Allergy status to narcotic agent
CPT/HCPCS: 74018; 99284; A9270-GY

== ENCOUNTER 2024-06-11 09:50 | Emergency (ER) | payer OTHER ==
[2024-06-11] MEDS: Diazepam 5 MG Tab PO ONE ×3 (11:06→15:01)
[2024-06-11] MEDS: Ondansetron 4 MG Tab.DIS PO ONE (11:22)
[2024-06-11 14:41] VITALS: BP 144/86; PULSE 65
== END 2024-06-11 13:05 | disposition home or self-care (01) ==
LOC: DL.ED 09:50
DX: G24.3 Spasmodic torticollis (principal); M62.838 Other muscle spasm; E03.9 Hypothyroidism, unspecified; Z90.49 Acquired absence of other specified parts of digestive tract; Z90.710 Acquired absence of both cervix and uterus; Z88.8 Allergy status to other drugs, medicaments and biological substances; Z79.890 Hormone replacement therapy; Z79.899 Other long term (current) drug therapy
CPT/HCPCS: 72125; 87428; 99284; A9270

== ENCOUNTER 2024-07-10 12:49 | Emergency (ER) | payer OTHER ==
[2024-07-10 14:01] VITALS: BP 100/68; PULSE 93
== END 2024-07-10 14:47 | disposition home or self-care (01) ==
LOC: DL.ED 12:49
DX: J40 Bronchitis, not specified as acute or chronic (principal); Z88.5 Allergy status to narcotic agent; Z79.899 Other long term (current) drug therapy; Z90.49 Acquired absence of other specified parts of digestive tract
CPT/HCPCS: 71045; 87428-QW; 99284

== ENCOUNTER 2025-04-09 17:41 | Emergency (ER) | payer OTHER ==
[2025-04-09] MEDS: Lactulose Soln 10 GM/15 ML 30 ML UD Cup PO ONE (20:42)
[2025-04-09 21:16] VITALS: BP 142/74; PULSE 57
== END 2025-04-09 20:50 | disposition still patient (30) ==
LOC: DL.ED 17:41
DX: N20.0 Calculus of kidney (principal); K59.00 Constipation, unspecified; E03.9 Hypothyroidism, unspecified; Z79.899 Other long term (current) drug therapy; Z79.890 Hormone replacement therapy; Z88.5 Allergy status to narcotic agent; Z88.8 Allergy status to other drugs, medicaments and biological substances; Z90.49 Acquired absence of other specified parts of digestive tract; Z90.710 Acquired absence of both cervix and uterus
CPT/HCPCS: 74019; 99284; A9270-GY